=== PATIENT | male | born 1970 | race Caucasian/White ===

== ENCOUNTER 2022-11-11 19:10 | Emergency (ER) | payer OTHER, SELFPAY ==
[2022-11-11 19:54] VITALS: BP 114/72; PULSE 96; RESP 14; TEMP 36.6; O2SAT 96; BMI 33.9
--- NOTE | 2022-11-11 20:08 | W.ED.ALLEREA ---
HPI - Allergic Reaction General: Chief complaint: Allergic Reaction Stated complaint: allergic reaction Time Seen by Provider: 11/11/22 19:59 History of Present Illness: HPI narrative: 52-year-old male patient comes in today with itching and a rash all over. Patient reports since arriving to the ER he has noticed some improvement. Patient reported some mild difficulty with breathing but it has cleared up since arriving to the ER. Patient appears nontoxic. Patient appears in no pain. Associated symptoms: Deny vomiting Review of Systems General: Reports: 10 or more systems reviewed and unremarkable except in HPI and below Const: Denies: fever(s) Card: Denies: chest pain or palpitations Resp: Denies: dyspnea GI: Denies: vomiting : Denies: difficulty urinating Musc: Denies: back pain Skin/Breast: Reports: pruritus; Denies: rash Neuro: Denies: numbness in extremities Psych: Reports: anxiety All/Imm: Reports: urticaria Physical Exam Const: COMMON NORMALS: patient oriented x3 HENMT: COMMON NORMALS: normocephalic HEAD & SCALP: normocephalic Neck/C-Spine: COMMON NORMALS: full ROM Resp: COMMON NORMALS: normal respiratory effort and clear to auscultation bilaterally AUSCULTATION: clear to auscultation bilaterally Cardio: COMMON NORMALS: regular rate RATE: regular rate GI: COMMON NORMALS: non-tender : COMMON NORMALS: Yes no CVA tenderness BLADDER/KIDNEY EXAM: Yes no CVA tenderness Back/Pelvis: COMMON NORMALS: no CVA tenderness Extremity: COMMON NORMALS: no pedal edema Neuro: COMMON NORMALS: patient oriented x3 Skin: COMMON NORMALS: turgor normal GENERAL SKIN EXAM: turgor normal RASHES: rashes noted (Generalized urticaria.) Course Vital Signs: Vital signs: Vital Signs Temperature 97.9 F 11/11/22 19:54 Pulse Rate 96 11/11/22 19:54 Respiratory Rate 14 11/11/22 19:54 Blood Pressure 114/72 11/11/22 19:54 Pulse Oximetry 96 11/11/22 19:54 Oxygen Delivery Me thod Room Air 11/11/22 19:54 MDM - Allergic Reaction Medical Decision Making 52-year-old male patient comes in today with generalized rash. On exam patient has itching in the lower extremities. Patient has urticaria/hives. Lungs are clear to auscultation. Vital signs are normal. Differential diagnosis includes but not limited to anaphylaxis, allergic reaction, anxiety. Patient is not in any extreme anxiety. Lungs are clear and patient appears stable. Patient does have a generalized urticaric rash. Patient was given 10 mg of dexamethasone, and 20 mg of cetirizine. 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 Believe the reaction is secondary to his pork ingestion. Discussed with patient recommendations for drinking plenty of fluids and avoiding further meat that exacerbates his symptoms. Patient was recommended to continue with loratadine or cetirizine 1 to 2 tablets twice a day to help control itching and rash. Patient reported understanding and agreed to plan. Discharge Plan Discharge Patient Disposition: Home Clinical Impression: Urticaria Condition: Stable Prescriptions: New epinephrine 0.3 mg/0.3 mL auto-injector 0.3 mg IM Q10M PRN (Reason: allergic reaction) Qty: 2 0RF Rx Instructions: for 2 doses Discharge Orders: Discharge ED (Routine); Ordered 11/11/22 Ordered By: Cesar Cedillo Discharge Diet: Usual diet Discharge Activity: Increase activity as tolerated Patient Instructions: Allergic Reaction Activity Restrictions/Additional Instructions: Continue with loratadine, Claritin, and/or cetirizine, Zyrtec, 1 to 2 tablets twice a day for control of rash and itching. Drink plenty of water with medication. Use a light lotion to help keep skin comfortable. Use hydrocortisone 1% cream, [id number], mixed with lotion 2 times a day to help with rash and itching. Follow-up with primary care for further instructions. Return to ER for new concerns such as worsening symptoms, difficulty breathing, or high fever. Coding Level of Care Code ED Public Relations Associate for Neal Fritz
[2022-11-11] MEDS: dexamethasone 10 mg/mL INJ IM (20:23)
[2022-11-11] MEDS: cetirizine 10 mg Tablet 20 MG PO (20:23)
[2022-11-11 20:29] VITALS: BP 133/91; PULSE 100; RESP 16; O2SAT 97
== END 2022-11-11 20:34 | disposition home or self-care (01) ==
PROVIDERS: Emergency Provider Nurse Practitioner Family
DX: L50.9 Urticaria, unspecified (principal)
CPT/HCPCS: 96372; 99284; J1100

== ENCOUNTER → 2023-07-13 16:41 | Outpatient (BNVA) | payer OTHER, SELFPAY | PROVIDERS: Visit Provider Emergency Medicine | DX: R05.9 Cough, unspecified (principal) | CPT/HCPCS: 87400 ==